=== PATIENT | female | born 1990 | race Caucasian/White ===

== ENCOUNTER 2021-04-10 15:19 | Inpatient (IN) | payer MEDICAID ==
[~2021-04-10] VITALS: Ht 180.3 cm; Wt 100.7 kg
--- NOTE | 2021-04-10 15:22 | NUR ---
TO ER BED 11, [id number] FOR NOTED LOW BODY TEMP X TODAY. NONVERBAL WITH TRACH ATTACHED TO O2 AT 6LPM SPO2 OF 97% WITH GTUBE, URIBE CATH ATTACHED TO UROBAG DRAINING BETTIE COLORED URINE, CONNECTED TO MONITOR, AWAITING MD ORDERS
[2021-04-10] MEDS ORDERED: IV NS 0.9% 1,000 ML BAG IV ONE (16:00)
--- NOTE | 2021-04-10 16:09 | NUR ---
HOUSE CARPENTER AT BEDSIDE FOR BLOOD DRAW
[2021-04-10 16:27] LABS: BASOPHILS % (AUTO) 0.5 % (0.0-2.0); HEMATOCRIT 32 % (33-45); HEMOGLOBIN 10.8 g/dL (11.5-14.8); LYMPHOCYTES # (AUTO) 0.6 K/uL (0.8-4.8); LYMPHOCYTES % (AUTO) 19.3 % (20.0-44.0); MEAN CORPUSCULAR HGB CONC 34 g/dl (31.0-36.0); MEAN CORPUSCULAR VOLUME 85 fL (82-100); MONOCYTES # (AUTO) 0.3 K/uL (0.1-1.30); MONOCYTES % (AUTO) 10.3 % (2.0-12.0); NEUTROPHILS % (AUTO) 65.9 % (43.0-81.0); PLATELET COUNT (AUTO) 102 K/uL (150-450); RED BLOOD CELL COUNT(AUTO) 3.79 MIL/uL (4.0-5.2); WHITE BLOOD COUNT (AUTO) 3.1 K/uL (4.3-11.0)
--- NOTE | 2021-04-10 16:38 | NUR ---
[facility] [place] [phone] WANTED TO BE INFORMED ON HOW PT IS DOING.
--- NOTE | 2021-04-10 16:45 | NUR ---
URINE COLLECTED AND SENT TO LAB
[2021-04-10 16:52] LABS: CALCIUM, SERUM 9.6 mg/dL (8.5-10.1); CARBON DIOXIDE 33 mmol/L (21-32); CHLORIDE 109 mmol/L (98-107); CREATININE 0.4 mg/dL (0.6-1.3); GLUCOSE 54 mg/dL (74-106); POTASSIUM 4.9 mmol/L (3.5-5.1); SODIUM SERUM 147 mmol/L (136-145); UREA NITROGEN, BLOOD 33 mg/dL (7-18)
[2021-04-10 17:04] LABS: ALANINE AMINOTRANSFERASE 139 U/L (12-78); ALBUMIN 2.9 g/dL (3.4-5.0); ALKALINE PHOSPHATASE 175 U/L (46-116); ASPARTATE AMINOTRANSFERASE 57 U/L (15-37); BILIRUBIN,DIRECT 0.1 mg/dL (0.0-0.2); BILIRUBIN,TOTAL 0.2 mg/dL (0.2-1.0); TOTAL PROTEIN, SERUM 6.6 g/dL (6.4-8.2)
[2021-04-10] MEDS ORDERED: SENN-175 GT (17:17)
[2021-04-10] MEDS ORDERED: GLYC2TAB21 GT (17:17)
[2021-04-10] MEDS ORDERED: FAMO20TA8 GT (17:17)
[2021-04-10] MEDS ORDERED: AMIN887L7 GT (17:17)
[2021-04-10] MEDS ORDERED: DOCU-141 GT (17:17)
[2021-04-10] MEDS ORDERED: POLY17PO4 GT (17:17)
[2021-04-10] MEDS ORDERED: APIX2.5T GT (17:17)
[2021-04-10] MEDS ORDERED: CARB200T GT (17:17)
[2021-04-10] MEDS ORDERED: LEVE500T20 GT (17:17)
[2021-04-10] MEDS ORDERED: METH-647 GT (17:17)
[2021-04-10] MEDS ORDERED: LACT1CAP69 GT (17:17)
[2021-04-10] MEDS ORDERED: CHLO473M2 MM (17:17)
[2021-04-10] MEDS ORDERED: LACT-209 GT (17:19)
[2021-04-10 17:56] LABS: BILIRUBIN,URINE NEGATIVE (NEGATIVE); COLOR,URINE YELLOW (YELLOW); LEUKOCYTE ESTERASE ,URINE MODERATE (NEGATIVE); NITRITE, URINE NEGATIVE (NEGATIVE); PROTEIN,URINE TRACE mg/dl (NEGATIVE); UGLUCOSE NEGATIVE (NEGATIVE); UROBILINOGEN,URINE 0.2 EU/dL (0.2)
--- NOTE | 2021-04-10 17:59 | NUR ---
SEEN BY RAMILA GARAY
[2021-04-10] MEDS ORDERED: CEFTRIAXONE 1GM BAG (ER ONLY) 50 ML IV ONE (18:00)
[2021-04-10 18:10] LABS: BACTERIA,URINE 3+ /HPF (None Seen); RBC,URINE 21-50 /HPF (0-2); WBC,URINE 21-50 /HPF (0-3)
[2021-04-10 18:11] LABS: SQUAMOUS EPITHELIAL CELL,UR 0-2 /HPF (None Seen)
[2021-04-10] MEDS ORDERED: ONDANSETRON HCL/PF 4 MG/2 ML VIAL IVP PRN (19:00)
[2021-04-10] MEDS ORDERED: ACETAMINOPHEN 325 MG TABLET PO PRN (19:00)
[2021-04-10] MEDS ORDERED: Z GUARD REMEDY 4 OZ OINT TP PRN (19:00)
[2021-04-10] MEDS ORDERED: LORAZEPAM INJ 2 MG/ML VIAL IV ONE (19:00)
[2021-04-10] MEDS ORDERED: MAG HYDROX/AL HYDROX/SIMETH 30 ML UDC PO PRN (19:00)
[2021-04-10] MEDS ORDERED: IV D5W 1,000 ML IV PRN (19:00)
--- NOTE | 2021-04-10 19:40 | NUR ---
COVID SWAB DONE AND SENT TO LAB
[2021-04-10] MEDS ORDERED: LORAZEPAM INJ 2 MG/ML VIAL ONE (20:47)
[2021-04-10] MEDS: VANCOMYCIN 1 GM in IV D5W 250ml IV SCH (21:00)
--- NOTE | 2021-04-10 21:24 | NUR ---
TEMP 98.3
--- NOTE | 2021-04-10 21:30 | NUR ---
CHELSEA 7.0 NOTIFIED
--- NOTE | 2021-04-10 21:54 | NUR ---
ALBUMIN 1.2 MD NOTIFIED
[2021-04-10 21:58] LABS: T4 (THYROXINE) 5.9 ug/dL (4.7-13.3); THYROID STIMULATING HORMONE 1.882 uIU/mL (0.358-3.74)
[2021-04-10] MEDS ORDERED: LEVETIRACETAM (500MG) 500 MG in IV NS 0.9% 100 ML IV ONE (23:00)
--- NOTE | 2021-04-10 23:02 | NUR ---
tele 107
[2021-04-10] MEDS ORDERED: LEVETIRACETAM (500MG) 500 MG/5 ML VIAL IV ONE (23:13)
--- NOTE | 2021-04-10 23:44 | NUR ---
[facility]
[2021-04-11] MEDS ORDERED: PIPERACILLIN /TAZOBACTAM 3.375 G in IV D5W 50 ML IV SCH ×2
--- NOTE | 2021-04-11 00:31 | NUR ---
TRANSFERRED PATIENT TO 109
[2021-04-11 00:40] VITALS: BP 102/54
--- NOTE | 2021-04-11 00:40 | NUR ---
RN NOTES ADMITTED A 30 Y/O FEMALE PATIENT FROM ER VIA GURNEY. WITH TRACHEOSTOMY TUBE SHILEY #6 CONNECTED TO T-PIECE AT 3LPM SATING 95%. WITH IV ACCESS AT R HAND #22 PATENT FLUSHES WELL CONNECTED TO CONTINUOS IVF D5W @ 75CC/HR. WITH PEG PATENT NO GASTRIC RESIDUAL NOTED. WITH URIBE CATHETER CONNECTED TO URINE BAG DRAINING BETTIE COLORED URINE. VITAL SIGNS TAKEN AND RECORDED. SAFELY TRANSFERRED PATIENT TO BED. COMPLETE BODY ASSESSMENT DONE. PICTURE TAKEN. ALL BELONGINGS ACCOUNTED. ALL SAFETY MEASURES IN PLACE AT ALL TIMES. HOB ELEVATED. CALL LIGHT WITHIN REACH. BED ON LOWEST POSITION AND LOCKED. SEIZURE PRECAUTION IN PLACE WILL MONITOR THE PATIENT CLOSELY.
[2021-04-11 04:00] VITALS: BP 98/68
[2021-04-11] MEDS: VANCOMYCIN 1 GM in IV D5W 250ml IV SCH ×3 (05:02→21:12)
[2021-04-11] MEDS ORDERED: CEFEPIME 2 GM in IV D5W 100 ML IV ONE (06:00)
--- NOTE | 2021-04-11 06:00 | NUR ---
RN NOTES DUE MEDICATION HELD PER PHARMACY NOTES. CN SPOKE MAXX AND SAID HE WILL CHANGE THE ORDER. WILL ENDORSED TO MORNING NURSE.
--- NOTE | 2021-04-11 06:53 | NUR ---
RN NOTES PATIENT REMAINS IN STABLE NO SIGNIFICANT CHANGES IN HEALTH CONDITION. ALL DUE MEDS GIVEN ORDERED. STILL WITH ONGOING IVF OF D5W @ 75 ML/HR. GT INTACT NO GASTRIC RESIDUAL NOTED. ON TRACH CONNECTED TO T-PIECE @ 3LPM SATING 97%. URIBE INTACT DRAINING WELL. ALL SAFETY MEASURES IN PLACE AT ALL TIMES. CALL LIGHT WITHIN REACH HOB ELEVATED. BED ON LOWEST POSITION AND LOCKED. NO EPISODE OF SEIZURE DURING THIS SHIFT. WILL ENDORSED TO MORNING NURSE FOR EDY
--- NOTE | 2021-04-11 07:21 | NUR ---
WOUND CARE CONSULT: REVIEWED CHART, NURSING DOCUMENTATION AND PHOTOS WHICH INDICATE SACRAL DEEP TISSUE INJURY IN EVOLUTION AND RT BUTTOCK INTACT DEEP TISSUE INJURY, PRESENT ON ADMISSION. RECOMMENDATIONS MADE FOR SKIN PROTECTION. DISCUSSED WITH NURSING STAFF. FIRST STEP LOW AIRLOSS MATTRESS IS ON ORDER. MD IN AGREEMENT WITH PLAN OF CARE.
--- NOTE | 2021-04-11 07:30 | NUR ---
SALES ENABLEMENT SPECIALIST NOTES RECEIVED PATIENT IN BED . NON VERBAL. OBTUNDED. NO FACIAL GRIMACING NOTED. NO SOB NO RESPIRATORY DISTRESS NOTED. IV SIDE ON THE RIGHT HAND # 22 INTACT. IVF OF D5W @ 75 ML/HR RUNNING.PATIENT ON G-TUBE. GT INTACT NO GASTRIC RESIDUAL NOTED. ON TRACH CONNECTED TO T-PIECE @ 3LPM SATING 96%. URIBE INTACT DRAINING WELL. ALL SAFETY MEASURES IN PLACE AT ALL TIMES. CALL LIGHT WITHIN REACH HOB ELEVATED. BED ON LOWEST POSITION AND LOCKED. WILL CONTINUE TO MONITOR.
[2021-04-11 07:55] LABS: BASOPHILS % (AUTO) 0.6 % (0.0-2.0); EOSINOPHILS % (AUTO) 1.9 % (0.0-6.0); HEMATOCRIT 32 % (33-45); HEMOGLOBIN 10.5 g/dL (11.5-14.8); LYMPHOCYTES # (AUTO) 0.9 K/uL (0.8-4.8); LYMPHOCYTES % (AUTO) 19.4 % (20.0-44.0); MEAN CORPUSCULAR HGB CONC 33 g/dl (31.0-36.0); MEAN CORPUSCULAR VOLUME 85 fL (82-100); MONOCYTES # (AUTO) 0.5 K/uL (0.1-1.30); MONOCYTES % (AUTO) 10.5 % (2.0-12.0); NEUTROPHILS # (AUTO) 3.2 K/uL (1.8-8.9); NEUTROPHILS % (AUTO) 67.6 % (43.0-81.0); PLATELET COUNT (AUTO) 132 K/uL (150-450); RED BLOOD CELL COUNT(AUTO) 3.74 MIL/uL (4.0-5.2); WHITE BLOOD COUNT (AUTO) 4.7 K/uL (4.3-11.0)
[2021-04-11] MEDS: PANTOPRAZOLE 40 MG TABLET.DR PO SCH (07:59)
[2021-04-11] MEDS: CEFEPIME 2 GM in IV D5W 100 ML IV SCH ×3 (07:59→21:12)
[2021-04-11 08:00] VITALS: BP 98/55
[2021-04-11 08:29] LABS: CALCIUM, SERUM 10.1 mg/dL (8.5-10.1); CREATININE 0.5 mg/dL (0.6-1.3); MAGNESIUM 1.9 mg/dL (1.8-2.4); PHOSPHORUS 4.2 mg/dL (2.5-4.9); POTASSIUM 4.3 mmol/L (3.5-5.1)
[2021-04-11] MEDS: METHOCARBAMOL (500MG) 500 MG TABLET GT SCH ×3 (08:55→16:30)
[2021-04-11] MEDS: FAMOTIDINE (20 MG) 20 MG TABLET GT SCH ×2 (08:55→16:30)
[2021-04-11] MEDS: CHLORHEXIDINE GLUCONATE 15 ML UDC MM SCH ×2 (08:55→16:30)
[2021-04-11] MEDS: LEVETIRACETAM SOL (5 ML) 100 MG/ML UDC GT SCH ×2 (08:55→16:29)
[2021-04-11] MEDS: APIXABAN 2.5 MG TABLET GT SCH ×2 (09:04→21:14)
[2021-04-11] MEDS: CARBAMAZEPINE 200 MG TABLET GT SCH (09:26)
[2021-04-11] MEDS: PROSOURCE / PROSTAT (PYXIS) 30 ML UDC GT SCH (09:27)
[2021-04-11] MEDS: LORAZEPAM INJ 2 MG/ML VIAL IV PRN (11:23)
[2021-04-11] MEDS ORDERED: CARBAMAZEPINE 200 MG TABLET GT ONE (11:30)
[2021-04-11] MEDS: IV D5/ 0.9% NACL 1,000 ML IV PRN (11:43)
[2021-04-11 12:00] VITALS: BP 101/65
[2021-04-11] MEDS: HYDROCORTISONE SOD SUCCINATE 100 MG/2 ML VIAL IV SCH ×2 (12:40→21:13)
--- NOTE | 2021-04-11 12:49 | NUR ---
SS received consult regarding name change. SW attempted to speak with pt., but pt. has a trach connector placed. SW spoke with charge nurse and she stated that pt. wants to change name for confidential reasons. SW spoke with admitting and they were not able to change her name. Admitting was able to set pt. has confidential, so if anyone calls and ask for pt., it will be confidential.
[2021-04-11 16:00] VITALS: BP 118/62
--- NOTE | 2021-04-11 18:55 | NUR ---
VALIDATION ARCHITECT CLOSING NOTES PATIENT IN BED . NON VERBAL. NO FACIAL GRIMACING NOTED. NO SOB NO RESPIRATORY DISTRESS NOTED. IV SIDE ON THE RIGHT UPPER FOREARM # 22 INTACT. IVF OF D5NS @ 100 ML/HR RUNNING.PATIENT ON G-TUBE. GT INTACT NO GASTRIC RESIDUAL NOTED. ON TRACH CONNECTED TO T-PIECE @ 1LPM SATING 97%. URIBE INTACT DRAINING WELL. ALL SAFETY MEASURES IN PLACE AT ALL TIMES.ALL DUE MEDS AND TREATMENTS GIVEN ORDERED. CALL LIGHT WITHIN REACH HOB ELEVATED. BED ON LOWEST POSITION AND LOCKED. WILL ENDORSE INCOMING SHIFT FOR EDY.
--- NOTE | 2021-04-11 19:10 | NUR ---
RN NOTES RECEIVED REPORT FROM MORNING RN PATIENT IN BED OBTUNDED. WITH TRACH SHILEY #6 PATENT CONNECTED TO T-PIECE AT 1LPM SATING 99%. WITH GT INTACT NO RESIDUAL NOTED. WITH IV ACCESS AT R FOREARM #22 PATENT FLUSHES WELL CONNECTED TO D5 NACL @100CC/HR. WITH URIBE CATHETER CONNECTED TO URINE BAG PATENT DRAINING YELLOWISH URINE OUTPUT. VITAL SIGNS TAKEN AND RECORDED. AFEBRILE. ALL SAFETY MEASURES IN PLACE AT ALL TIMES. HOB ELEVATED. CALL LIGHT WITHIN REACH. BED O0N LOWEST POSITION AND LOCKED. WILL CLOSELY MONITOR THE PATIENT.
[2021-04-11 20:00] VITALS: BP 106/65
[2021-04-11] MEDS: CARBAMAZEPINE 200 MG TABLET PO SCH (21:13)
[2021-04-12] VITALS: BP 93/52
[2021-04-12] MEDS: LORAZEPAM INJ 2 MG/ML VIAL IV PRN (01:13)
[2021-04-12] MEDS: IV D5/ 0.9% NACL 1,000 ML IV PRN ×2 (01:21→13:48)
[2021-04-12 04:00] VITALS: BP 102/56
[2021-04-12] MEDS: CEFEPIME 2 GM in IV D5W 100 ML IV SCH ×3 (04:18→20:37)
[2021-04-12] MEDS: VANCOMYCIN 1 GM in IV D5W 250ml IV SCH ×3 (04:51→20:40)
[2021-04-12] MEDS: HYDROCORTISONE SOD SUCCINATE 100 MG/2 ML VIAL IV SCH ×3 (05:05→20:37)
[2021-04-12 06:34] LABS: BASOPHILS % (AUTO) 0.5 % (0.0-2.0); EOSINOPHILS % (AUTO) 0.7 % (0.0-6.0); HEMATOCRIT 27 % (33-45); HEMOGLOBIN 9.2 g/dL (11.5-14.8); LYMPHOCYTES % (AUTO) 28.8 % (20.0-44.0); MEAN CORPUSCULAR HGB CONC 34 g/dl (31.0-36.0); MEAN CORPUSCULAR VOLUME 84 fL (82-100); MONOCYTES # (AUTO) 0.2 K/uL (0.1-1.30); MONOCYTES % (AUTO) 6.3 % (2.0-12.0); NEUTROPHILS # (AUTO) 2.1 K/uL (1.8-8.9); NEUTROPHILS % (AUTO) 63.7 % (43.0-81.0); PLATELET COUNT (AUTO) 108 K/uL (150-450); RED BLOOD CELL COUNT(AUTO) 3.22 MIL/uL (4.0-5.2); WHITE BLOOD COUNT (AUTO) 3.4 K/uL (4.3-11.0)
--- NOTE | 2021-04-12 06:53 | NUR ---
RN NOTES PATIENT REMAINS IN STABLE CONDITION NO SIGNIFICANT CHANGES. ALL DUE MEDS GIVEN ORDERED. STILL ON T-PIECE AT 1LPM TOLERATING WELL SATING 98%. WITH IV ACCES @ R FOREARM PATENT CONNECTED TO CONTINUOS IVF OF D2NS @100 CC/HR. ALL DUE MEDS GIVEN ORDERED. GT PATENT NO RESIDUAL NOTED. NO DISTRESS OR DISCOMFORT NOTED. ALL SAFETY MEASURES IN PLACE AT ALL TIMES. CALL LIGHT WITHIN REACH. HOB ELEVATED. BED ON LOWEST POSITION AND LOCKED. SEIZURE PRECAUTION IN PLACE.WILL ENDORSED TO MORNING RN FOR EDY
[2021-04-12 07:55] LABS: CALCIUM, SERUM 9.2 mg/dL (8.5-10.1); CREATININE 0.5 mg/dL (0.6-1.3); POTASSIUM 3.6 mmol/L (3.5-5.1)
[2021-04-12 08:00] VITALS: BP 94/54
--- NOTE | 2021-04-12 08:00 | NUR ---
RN Opening Note Patient received in bed obtunded, does no appears distress observed, able to responds all stimuli. Patient is on T piece, Cristy #6, and respiratory even and unlabored. Skin is warm to touch, keep clean/dry, intact IV site. Kept elevated HOB for ensure air/aspiration precaution and remains lower position of the bed. call light within reach, will continue to monitor.
[2021-04-12] MEDS: PANTOPRAZOLE 40 MG TABLET.DR PO SCH (08:48)
[2021-04-12] MEDS: FAMOTIDINE (20 MG) 20 MG TABLET GT SCH ×2 (08:52→16:34)
[2021-04-12] MEDS: APIXABAN 2.5 MG TABLET GT SCH ×2 (08:52→20:34)
[2021-04-12] MEDS: METHOCARBAMOL (500MG) 500 MG TABLET GT SCH ×3 (08:53→16:34)
[2021-04-12] MEDS: PROSOURCE / PROSTAT (PYXIS) 30 ML UDC GT SCH (08:54)
[2021-04-12] MEDS: LEVETIRACETAM SOL (5 ML) 100 MG/ML UDC GT SCH ×2 (08:54→16:34)
[2021-04-12] MEDS: CHLORHEXIDINE GLUCONATE 15 ML UDC MM SCH ×2 (08:55→16:34)
[2021-04-12] MEDS: CARBAMAZEPINE 200 MG TABLET GT SCH (08:57)
[2021-04-12 12:00] VITALS: BP 94/65
[2021-04-12 14:14] LABS: IRON, SERUM 61 ug/dl (50-175); TOTAL IRON BINDING CAPACITY 234 ug/dl (250-450)
[2021-04-12 14:19] LABS: FERRITIN 94 ng/mL (8-388)
[2021-04-12 16:00] VITALS: BP 100/54
--- NOTE | 2021-04-12 18:25 | NUR ---
RN Closing Note Patient is resting in bed, no distress observed. Respiratory even and unlabored with oxygen via T-piece at 1L. Suction and oral care provided frequently. Skin is warm to touch, keep clean/dry, intact IV site. Kept elevated HOB for ensure airway and aspiration precaution, Also lower position of the bed for safety. Call light within reach, all needs met. will endorse production supervisor off shift.
[2021-04-12 20:00] VITALS: BP 100/54
[2021-04-12 20:40] LABS: ABG BASE EXCESS 3.7 mmol/L; ABG PCO2 47.2 mmHg (35.0-45.0); ABG PH 7.406 (7.350-7.450); ABG PO2 224.4 mmHg (75.0-100.0); COHb 0.1 % (0.5-1.5); MetHb 0.2 % (0.0-1.5); O2Hb 98.7 % (94.0-97.0); SITE, ABG Right Radial; VENT MODE, BG 3LPM VIA T-PIECE
[2021-04-12] MEDS: CARBAMAZEPINE 200 MG TABLET PO SCH (21:38)
[2021-04-13] VITALS: BP 106/61
[2021-04-13] MEDS: IV D5/ 0.9% NACL 1,000 ML IV PRN ×2 (03:10→21:49)
[2021-04-13 04:00] VITALS: BP 96/59
[2021-04-13] MEDS: VANCOMYCIN 1 GM in IV D5W 250ml IV SCH ×2 (04:16→20:21)
[2021-04-13] MEDS: CEFEPIME 2 GM in IV D5W 100 ML IV SCH ×3 (04:17→20:13)
[2021-04-13] MEDS: HYDROCORTISONE SOD SUCCINATE 100 MG/2 ML VIAL IV SCH ×3 (04:17→20:13)
--- NOTE | 2021-04-13 04:47 | NUR ---
RN notes Resting comfortably in bed with no distress noted. Breathing even and unlabored. On nasal cannula at 2lpm, tolerating well. Alert and oriented, able to verbalize needs. Panamanian speaking but able to speak a little Japanese. No complaint of pain or discomfort. No significant change of condition. Continuous monitoring done. Kept clean and dry. Will endorse to next shift for continuity of care.
--- NOTE | 2021-04-13 04:48 | NUR ---
RN notes In bed resting comfortably. No distress noted. Breathing even and unlabored. On T-piece via trach tolerating well. Opens eyes with no eye tracking, obtunded. NPO after midnight for US of the abdomen in am. No physical manifestation of pain or discomfort. No significant change of condition. Kept clean and dry. Continuous monitory done. Kept clean and dry. Will endorse to next shift for continuity of care.
[2021-04-13 05:36] LABS: CALCIUM, SERUM 8.8 mg/dL (8.5-10.1); CREATININE 0.4 mg/dL (0.6-1.3); POTASSIUM 3.5 mmol/L (3.5-5.1)
--- NOTE | 2021-04-13 07:13 | NUR ---
RN OPENING NOTES PT RECEIVED IN BED OBTUNDED, NO S/S OF DISTRESS OBSERVED AT THIS TIME. PT IS ON T PIECE, NORMAN #6 WITH RESPIRATIONS EVEN AND UNLABORED. SKIN IS WARM TO TOUCH AND KEPT CLEAN AND DRY, IV SITE INTACT. ALL SAFETY MEASURES IN PLACE, BED IN LOWEST LOCKED POSITION, SR UP X 3, CALL LIGHT WITHIN REACH. WILL CONTINUE TO MONITOR THROUGHOUT SHIFT.
[2021-04-13] MEDS: PANTOPRAZOLE 40 MG TABLET.DR PO SCH (07:27)
[2021-04-13 08:00] VITALS: BP 104/65
[2021-04-13 08:06] LABS: IMMUNOGLOBULIN A, SERUM 187 mg/dL (87-352); IMMUNOGLOBULIN G, SERUM 859 mg/dL (586-1602); IMMUNOGLOBULIN M, SERUM 64 mg/dL (26-217)
[2021-04-13] MEDS: FAMOTIDINE (20 MG) 20 MG TABLET GT SCH ×2 (08:56→16:07)
[2021-04-13] MEDS: CHLORHEXIDINE GLUCONATE 15 ML UDC MM SCH ×2 (08:56→16:08)
[2021-04-13] MEDS: METHOCARBAMOL (500MG) 500 MG TABLET GT SCH ×3 (08:56→16:08)
[2021-04-13] MEDS: LEVETIRACETAM SOL (5 ML) 100 MG/ML UDC GT SCH ×2 (08:59→16:08)
[2021-04-13] MEDS: CARBAMAZEPINE 200 MG TABLET GT SCH (09:00)
[2021-04-13] MEDS: PROSOURCE / PROSTAT (PYXIS) 30 ML UDC GT SCH (09:01)
[2021-04-13] MEDS: APIXABAN 2.5 MG TABLET GT SCH ×2 (09:01→20:14)
[2021-04-13] MEDS ORDERED: JEVITY 1.2 CAL 1,000 ML BOTTLE GT PRN ×2 (11:00)
[2021-04-13] MEDS ORDERED: JEVITY 1.2 CAL 1,000 ML BOTTLE GT SCH ×2 (11:00)
[2021-04-13 12:00] VITALS: BP 100/58
[2021-04-13 16:00] VITALS: BP 109/71
--- NOTE | 2021-04-13 18:42 | NUR ---
RN CLOSING NOTES PT IS CURRENTLY RESTING IN BED, PT IS OBTUNDED AND IN A PERSISTENT VEGETATIVE STATE. NO S/S OF DISTRESS OR SOB, ISOLATION AND ASPIRATION PRECAUTIONS IN PLACE. PT HAS T PIECE ABHILASH SIZE 6 SATING AT 99%. HOB ELEVATED TO AT LEAST 35 DEGREES THROUGHOUT SHIFT. JEVITY 1.2 RUNNING THROUGH G TUBE AT 75ML/HR. ALL SAFETY MEASURES IN PLACE, BED IN LOWEST LOCKED POSITION, SR UP X 3, CALL LIGHT WITHIN REACH. WILL ENDORSE TO DATACAP DEVELOPER NURSE FOR EDY.
--- NOTE | 2021-04-13 19:40 | NUR ---
AIRCRAFT MECHANIC OPENING NOTES RECEIVED PT RESTING IN BED, EASILY AROUSABLE. PT IS OBTUNDED AND IN A PERSISTENT VEGETATIVE STATE. NO SOB OR S/S OF RESPIRATORY DISTRESS. PT HAS T PIECE ABHILASH SIZE 6 SATING AT 99%. EXTERNAL IMMUNOLOGY TEACHER IN PLACE. IV ACCESS LFA 22G, INTACT AND PATENT. URIBE CATHETER IN PLACE DRAINING CLEAR YELLOW URINE. JEVITY 1.2 RUNNING THROUGH G TUBE AT 75ML/HR. SAFETY PRECAUTIONS IN PLACE. BED IN LOWEST LOCKED POSITION, HOB ELEVATED, SIDE RAILS UP X3, AND CALL LIGHT AND TABLE WITHIN REACH. WILL CONTINUE WITH PLAN OF CARE.
[2021-04-13 20:00] VITALS: BP 115/68
[2021-04-13] MEDS: CARBAMAZEPINE 200 MG TABLET PO SCH (21:15)
[2021-04-14] VITALS: BP 110/67
[2021-04-14 04:00] VITALS: BP 111/65
[2021-04-14] MEDS: HYDROCORTISONE SOD SUCCINATE 100 MG/2 ML VIAL IV SCH ×3 (04:23→21:45)
[2021-04-14] MEDS: CEFEPIME 2 GM in IV D5W 100 ML IV SCH ×2 (04:23→12:27)
--- NOTE | 2021-04-14 05:00 | NUR ---
RN NOTE VANCO GIVEN AT 0500 BECAUSE VANCO TROUGH TAKEN YESTERDAY NOT A TRUE TROUGH PER DIONY RUTHERFORD FROM PHARMACY. VANCO LEVEL WAS 61 BUT WAS DRAWN 10 MINUTES AFTER VANCO WAS STARTED. NEW VANCO TROUGH WILL BE DRAWN TODAY AT 2000. WILL ENDORSE TO ONCOMING NURSE FOR EDY.
[2021-04-14] MEDS: VANCOMYCIN 1 GM in IV D5W 250ml IV SCH (05:11)
--- NOTE | 2021-04-14 06:47 | NUR ---
RICE FARMWORKER CLOSING NOTES PT RESTING IN BED, EASILY AROUSABLE. PT IS OBTUNDED AND IN A PERSISTENT VEGETATIVE STATE. NO SOB OR S/S OF RESPIRATORY DISTRESS. PT HAS T PIECE ABHILASH SIZE 6 SATING AT 99%. EXTERNAL PROJECTION ENGINEER IN PLACE READING SR. IV ACCESS LFA 22G RUNNING D5NS @ 100 ML/HR, INTACT AND PATENT. URIBE CATHETER IN PLACE DRAINING CLEAR YELLOW URINE, 350 ML. JEVITY 1.2 RUNNING THROUGH G TUBE AT 75ML/HR. ALL NEEDS MET AT THIS TIME. SAFETY PRECAUTIONS IN PLACE AT ALL TIMES. BED IN LOWEST LOCKED POSITION, HOB ELEVATED, SIDE RAILS UP X3, AND CALL LIGHT AND TABLE WITHIN REACH. WILL ENDORSE TO ONCOMING SHIFT FOR EDY.
[2021-04-14] MEDS: PANTOPRAZOLE 40 MG TABLET.DR PO SCH (07:15)
[2021-04-14 07:43] LABS: CALCIUM, SERUM 8.6 mg/dL (8.5-10.1); CREATININE 0.4 mg/dL (0.6-1.3); PHOSPHORUS 3.4 mg/dL (2.5-4.9); POTASSIUM 3.2 mmol/L (3.5-5.1)
[2021-04-14 08:00] VITALS: BP 107/70
[2021-04-14 08:06] LABS: *SPE A/G RATIO 1.1 (0.7-1.7); *SPE ALPHA-1-GLOBULIN 0.3 g/dL (0.0-0.4); *SPE ALPHA-2-GLOBULIN 0.6 g/dL (0.4-1.0); *SPE BETA GLOBULIN 0.9 g/dL (0.7-1.3); *SPE M-SPIKE Not Observed g/dL (Not Observed)
[2021-04-14] MEDS: CHLORHEXIDINE GLUCONATE 15 ML UDC MM SCH ×2 (08:45→16:16)
[2021-04-14] MEDS: FAMOTIDINE (20 MG) 20 MG TABLET GT SCH ×2 (08:45→16:16)
[2021-04-14] MEDS: METHOCARBAMOL (500MG) 500 MG TABLET GT SCH ×3 (08:46→16:15)
[2021-04-14] MEDS: LEVETIRACETAM SOL (5 ML) 100 MG/ML UDC GT SCH ×2 (08:46→16:16)
[2021-04-14] MEDS: APIXABAN 2.5 MG TABLET GT SCH ×2 (08:50→21:47)
[2021-04-14] MEDS: CARBAMAZEPINE 200 MG TABLET GT SCH (08:52)
[2021-04-14] MEDS: PROSOURCE / PROSTAT (PYXIS) 30 ML UDC GT SCH (08:53)
[2021-04-14 10:10] LABS: BASOPHILS % (AUTO) 0.3 % (0.0-2.0); EOSINOPHILS % (AUTO) 0.9 % (0.0-6.0); HEMATOCRIT 26 % (33-45); HEMOGLOBIN 8.6 g/dL (11.5-14.8); LYMPHOCYTES # (AUTO) 0.7 K/uL (0.8-4.8); LYMPHOCYTES % (AUTO) 14.3 % (20.0-44.0); MEAN CORPUSCULAR HGB CONC 33 g/dl (31.0-36.0); MEAN CORPUSCULAR VOLUME 85 fL (82-100); MONOCYTES # (AUTO) 0.3 K/uL (0.1-1.30); MONOCYTES % (AUTO) 5.1 % (2.0-12.0); NEUTROPHILS # (AUTO) 4.1 K/uL (1.8-8.9); NEUTROPHILS % (AUTO) 79.4 % (43.0-81.0); PLATELET COUNT (AUTO) 78 K/uL (150-450); RED BLOOD CELL COUNT(AUTO) 3.06 MIL/uL (4.0-5.2); WHITE BLOOD COUNT (AUTO) 5.1 K/uL (4.3-11.0)
[2021-04-14 12:00] VITALS: BP 99/49
[2021-04-14] MEDS: POTASSIUM CHLORIDE 20 MEQ POWDER PACKET NG SCH ×2 (13:25→14:24)
[2021-04-14] MEDS: IV D5/ 0.9% NACL 1,000 ML IV PRN (14:10)
[2021-04-14] MEDS: CEFTRIAXONE 1 G in IV D5W 50 ML IV SCH (14:24)
[2021-04-14 16:00] VITALS: BP 118/74
[2021-04-14] MEDS: JEVITY 1.2 CAL 1,000 ML BOTTLE GT SCH (17:13)
--- NOTE | 2021-04-14 18:40 | NUR ---
RN CLOSING NOTES PT IS RESTING IN BED, PT IS OBTUNDED AND IN A PERSISTENT VEGETATIVE STATE. PT HAS T PIECE ABHILASH SIZE 6 AND ON 2L. PT TOLERATED ALL INCREASED FEEDINGS DURING SHIFT. NO RESIDUAL NOTED. JEVITY 1.2 IS RUNNING CURRENTLY AT 75ML/HR. IV ACCESS IS AT L FA 22G RUNNING D5 0.9 NS AT 100ML/HR. ALL SAFETY MEASURES IN PLACE, BED IN LOWEST LOCKED POSITION, SR UP X 3, CALL LIGHT WITHIN REACH. HOB ELEVATED TO SEMI FOWLERS, WILL ENDORSE TO ESCAPE WHEEL TOOTH CUTTER NURSE FOR EDY.
--- NOTE | 2021-04-14 19:40 | NUR ---
RN OPENING NOTES RECEIVED PT IN BED, PERSISTENT VEGITATIVE STATE, ON TRACH#ARMANDO#6 WITH T-PIECE 2L AND PT TOLERATED WELL. IV ACCESS LFA#22G, RUNNING NS 100ML/HR, NO S/S OF INFILTRATIONS. ON GTUBE FEEDING, JEVITY 1.2 AT 75ML/HR AND PT TOLERATED WELL. NO RESIDUAL NOTED. NO FACIAL GRIMACING NOTED. NO ACUTE DISTRESS. ALL SAFETY MEASURES IN PLACE, BED IN LOWEST POSITION AND LOCKED, SIDE RAILS UP X 3, PLACE CALL LIGHT WITHIN REACH. HOB ELEVATED, WILL CONTINUE TO MONITOR.
[2021-04-14 20:00] VITALS: BP 109/59
[2021-04-14] MEDS: CARBAMAZEPINE 200 MG TABLET PO SCH (21:45)
[2021-04-15] VITALS: BP 117/73
[2021-04-15] MEDS: IV D5/ 0.9% NACL 1,000 ML IV PRN ×2 (00:57→11:00)
[2021-04-15 04:00] VITALS: BP 112/66
[2021-04-15] MEDS: HYDROCORTISONE SOD SUCCINATE 100 MG/2 ML VIAL IV SCH ×4 (04:41→16:21)
--- NOTE | 2021-04-15 06:47 | NUR ---
RN CLOSING NOTES PT IN BED, PERSISTENT VEGETATIVE STATE, ON TRACH#ARMANDO#6 WITH T-PIECE 2L, O2 SAT 97% AND PT TOLERATED WELL. IV ACCESS LFA#22G, RUNNING NS 100ML/HR, NO S/S OF INFILTRATIONS. ON GTUBE FEEDING, JEVITY 1.2 AT 75ML/HR AND PT TOLERATED WELL. 10CC RESIDUAL NOTED. NO FACIAL GRIMACING NOTED. NO ACUTE DISTRESS. SUCTION SEVERAL TIMES AND PT TOLERATED WELL. URIBE CATHETER INTACT AND PATENT WITH YELLOWISH/CLEAR URINE. ALL DUE MEDS GIVEN ORDERED. ALL SAFETY MEASURES IN PLACE, BED IN LOWEST POSITION AND LOCKED, SIDE RAILS UP X 3, PLACE CALL LIGHT WITHIN REACH. HOB ELEVATED, WILLENDORSE TO MORNING SHIFT NURSE.
--- NOTE | 2021-04-15 07:30 | NUR ---
RN OPENING NOTES PATIENT IN BED. A/OXO VEGETATIVE STATE. ON TRACH SHILEY#6 WITH T-PIECE 2L TOLERATING WELL WITH O2 SAT 96% NO S/S SOB OR DISTRESS. IV ACCESS LFA#22G INTACT AND PATENT RUNNING NS 100ML/HR, NO S/S OF INFILTRATIONS. ON GTUBE FEEDING INTACT AND PATENT JEVITY 1.2 AT 75ML/HR AND PT TOLERATED WELL. URIBE CATHETER INTACT AND PATENT WITH YELLOWISH/CLEAR URINE. BED IN LOWEST POSITION AND LOCKED IN PLACE. CALL LIGHT PLACED IN REACH. ALL SAFETY MEASURES NOTED AND ACCOUNTED FOR. WILL CONTINUE TO MONITOR.
[2021-04-15 07:37] LABS: BASOPHILS % (AUTO) 1.1 % (0.0-2.0); EOSINOPHILS % (AUTO) 2.6 % (0.0-6.0); HEMATOCRIT 26 % (33-45); HEMOGLOBIN 8.5 g/dL (11.5-14.8); LYMPHOCYTES # (AUTO) 1.3 K/uL (0.8-4.8); LYMPHOCYTES % (AUTO) 31.4 % (20.0-44.0); MEAN CORPUSCULAR HGB CONC 33 g/dl (31.0-36.0); MEAN CORPUSCULAR VOLUME 85 fL (82-100); MONOCYTES # (AUTO) 0.5 K/uL (0.1-1.30); MONOCYTES % (AUTO) 12.3 % (2.0-12.0); NEUTROPHILS # (AUTO) 2.2 K/uL (1.8-8.9); NEUTROPHILS % (AUTO) 52.6 % (43.0-81.0); PLATELET COUNT (AUTO) 95 K/uL (150-450); RED BLOOD CELL COUNT(AUTO) 3.03 MIL/uL (4.0-5.2); WHITE BLOOD COUNT (AUTO) 4.1 K/uL (4.3-11.0)
[2021-04-15 08:00] VITALS: BP 104/63
[2021-04-15 08:14] LABS: CALCIUM, SERUM 8.4 mg/dL (8.5-10.1); CREATININE 0.4 mg/dL (0.6-1.3); PHOSPHORUS 3.4 mg/dL (2.5-4.9); POTASSIUM 3.6 mmol/L (3.5-5.1)
[2021-04-15] MEDS: LEVETIRACETAM SOL (5 ML) 100 MG/ML UDC GT SCH ×2 (08:34→16:18)
[2021-04-15] MEDS: METHOCARBAMOL (500MG) 500 MG TABLET GT SCH ×3 (08:34→16:18)
[2021-04-15] MEDS: PANTOPRAZOLE 40 MG TABLET.DR PO SCH (08:34)
[2021-04-15] MEDS: CHLORHEXIDINE GLUCONATE 15 ML UDC MM SCH ×2 (08:35→16:18)
[2021-04-15] MEDS: FAMOTIDINE (20 MG) 20 MG TABLET GT SCH ×2 (08:35→16:18)
[2021-04-15] MEDS: APIXABAN 2.5 MG TABLET GT SCH ×2 (08:35→21:17)
[2021-04-15] MEDS: CARBAMAZEPINE 200 MG TABLET GT SCH (08:41)
[2021-04-15] MEDS: JEVITY 1.2 CAL 1,000 ML BOTTLE GT SCH (11:01)
[2021-04-15 11:07] LABS: *ANA ANTI-CENTROMERE B AB <0.2 AI (0.0-0.9); *ANA ANTI-DNA(DS) AB, QN <1 IU/mL (0-9); *ANA ANTI-JO-1 <0.2 AI (0.0-0.9); *ANA ANTICHROMATIN ANTIBODY <0.2 AI (0.0-0.9); *ANA RNP ANTIBODIES <0.2 AI (0.0-0.9); *ANA SJOGREN'S ANTI-SS-A <0.2 AI (0.0-0.9); *ANA SJOGREN'S ANTI-SS-B <0.2 AI (0.0-0.9); *ANAANTI-SCLERODERMA-70 AB <0.2 AI (0.0-0.9); *ANASMITH AB <0.2 AI (0.0-0.9)
[2021-04-15 12:00] VITALS: BP 94/55
[2021-04-15] MEDS: CEFTRIAXONE 1 G in IV D5W 50 ML IV SCH (12:22)
[2021-04-15] MEDS: PROSOURCE / PROSTAT (PYXIS) 30 ML UDC GT SCH (12:43)
[2021-04-15 16:00] VITALS: BP 98/52
--- NOTE | 2021-04-15 16:21 | NUR ---
RN NOTE NON ADMIN SOLU CORTEF AT 1700. SOLU CORTEF ADMINISTERED AT 1200 AND 1600. BID MEDICATION ONLY.
--- NOTE | 2021-04-15 18:44 | NUR ---
RN CLOSING NOTE PATIENT IN BED. A/OXO VEGETATIVE STATE. ON TRACH SHILEY#6 WITH T-PIECE 2L TOLERATING WELL WITH O2 SAT 96% NO S/S SOB OR DISTRESS. MULTIPLE TRACHEAL SUCTIONS NEEDED THROUGHOUT THE DAY. IV ACCESS LFA#22G INTACT AND PATENT RUNNING NS 100ML/HR, NO S/S OF INFILTRATIONS. ON GTUBE FEEDING INTACT AND PATENT JEVITY 1.2 AT 75ML/HR AND PT TOLERATED WELL. URIBE CATHETER INTACT AND PATENT WITH YELLOWISH/CLEAR URINE. BED IN LOWEST POSITION AND LOCKED IN PLACE. CALL LIGHT PLACED IN REACH. ALL SAFETY MEASURES NOTED AND ACCOUNTED FOR. WILL ENDORSE TO METAL SPRAYER MACHINED PARTS RN.
--- NOTE | 2021-04-15 19:25 | NUR ---
RN NOTE PT RECEIVED IN BED. PT IS ON T-PIECE AT 2LPM TOLERATING WELL WITH OXYGEN SATURATION AT 100%. PT IS NOT ALERT, IN VEGETATIVE STATE. ON PATROL SERGEANT SHERIFF'S OFFICE SHOWING NSR. URIBE CATH NOTED. JEVITY 1.2 RUNNING AT 75 CC/HR. PT TOLERATING WELL. IV ACCESS NOTED ON RIGHT FA #22. LINE FLUSHED, PATENT, AND INTACT WITH NO SIGNS OF INFILTRATION. ALL SAFETY MEASURES IMPLEMENTED. WILL CONTINUE TO MONITOR FOR ANY CHANGES DURING SHIFT.
[2021-04-15 20:00] VITALS: BP 113/71
[2021-04-15] MEDS: CARBAMAZEPINE 200 MG TABLET PO SCH (21:18)
[2021-04-16] VITALS: BP 115/65
[2021-04-16] MEDS: IV D5/ 0.9% NACL 1,000 ML IV PRN (00:58)
[2021-04-16 04:00] VITALS: BP 114/65
[2021-04-16] MEDS: JEVITY 1.2 CAL 1,000 ML BOTTLE GT SCH (04:53)
--- NOTE | 2021-04-16 06:34 | NUR ---
RN NOTE NO CHANGES IN PT CONDITION DURING SHIFT. PT IS ON T-PIECE AT 2LPM TOLERATING WELL WITH OXYGEN SATURATION AT 100%. PT IS IN VEGETATIVE STATE. ON MAIL TELLER SHOWING NSR. JEVITY 1.2 RUNNING AT 75 CC/HR. PT TOLERATING WELL. IV ACCESS NOTED ON RIGHT FA #22 RUNNING D5NS AT 100 CC/HR. LINE FLUSHED, PATENT, AND INTACT WITH NO SIGNS OF INFILTRATION. ALL DUE MEDS GIVEN ORDERED. PT KEPT CLEAN AND COMFORTABLE. ALL SAFETY MEASURES IMPLEMENTED. WILL ENDORSE TO MORNING SHIFT RN FOR EDY.
--- NOTE | 2021-04-16 07:27 | NUR ---
RN NOTES PATIENT IN BED RESTING, A/O XO, OBTUNDED. ON TRACH SHILEY#6 WITH T-PIECE 2L TOLERATING WELL WITH O2 SAT 97% NO S/S OF DISTRESS. IV ACCESS LFA#22G INTACT AND PATENT. ON GTUBE FEEDING OF JEVITY 1.2 AT 75ML/HR AND PT TOLERATED WELL. URIBE CATHETER IN PLACE, DRAINING YELLOW-COLORED URINE. SAFETY MEASURES IN PLACE. WILL CONTINUE TO MONITOR.
[2021-04-16 08:00] VITALS: BP 110/64
[2021-04-16] MEDS: CHLORHEXIDINE GLUCONATE 15 ML UDC MM SCH ×2 (08:39→16:14)
[2021-04-16] MEDS: METHOCARBAMOL (500MG) 500 MG TABLET GT SCH ×3 (08:39→16:14)
[2021-04-16] MEDS: FAMOTIDINE (20 MG) 20 MG TABLET GT SCH ×2 (08:39→16:14)
[2021-04-16] MEDS: HYDROCORTISONE SOD SUCCINATE 100 MG/2 ML VIAL IV SCH ×2 (08:39→16:15)
[2021-04-16] MEDS: LEVETIRACETAM SOL (5 ML) 100 MG/ML UDC GT SCH ×2 (08:47→16:14)
[2021-04-16] MEDS: PANTOPRAZOLE 40 MG TABLET.DR PO SCH (08:48)
[2021-04-16] MEDS: APIXABAN 2.5 MG TABLET GT SCH ×2 (08:48→21:35)
[2021-04-16] MEDS: CARBAMAZEPINE 200 MG TABLET GT SCH (08:49)
[2021-04-16] MEDS: PROSOURCE / PROSTAT (PYXIS) 30 ML UDC GT SCH (08:50)
--- NOTE | 2021-04-16 11:44 | NUR ---
RN NOTES DR. HAM IN THE UNIT TO SEE THE PATIENT.
[2021-04-16 12:00] VITALS: BP 104/68
--- NOTE | 2021-04-16 12:23 | NUR ---
PER [facility] COVID NEGATIVE.
[2021-04-16] MEDS: CEFTRIAXONE 1 G in IV D5W 50 ML IV SCH (12:46)
--- NOTE | 2021-04-16 14:48 | NUR ---
RN NOTES TRACH AND ORAL SUCTIONING DONE PRN; REPOSITIONED AND CHANGED IN BED.
[2021-04-16 16:00] VITALS: BP 101/54
--- NOTE | 2021-04-16 19:00 | NUR ---
RN NOTES SAFETY MEASURES MAINTAINED. DUE MEDS GIVEN TODAY. WILL ENDORSE TO TECHNICAL CLERK RN FOR EDY.
--- NOTE | 2021-04-16 19:10 | NUR ---
RN NOTES RECEIVED REPORT FROM MORNING NURSE. PATIENT IN BED RESPONSIVE TO TACTILE STIMULI. WITH TRACH SHILEY #6 INTACT CONNECTED TO T-PIECE @2LPM TOLERATING WELL SATING 95% FIO2. WITH GT PATENT NO GASTRIC RESIDUAL NOTED CONNECTED TO CONTINUOS FEEDING JEVITY 1.2 @75CC/HR TOLERATING WELL. WITH IV ACCES AT L HAND #22 PATENT FLUSHES WELL. WITH ONGOING IVF OF D5NS 100CC/HR TOLERATING WELL. WITH URIBE CATHETER CONNECTED TO URINE BAG DRAINING YELLOWISH URINE OUTPUT. ALL SAFETY MEASURES IN PLACE AT ALL TIEMS. HOB ELEVATED. CALL LIGHT WITHIN REACH BED ON LOWEST POSITION AND LOCKED. WILL CONTINUE TO MONITOR.
[2021-04-16 20:00] VITALS: BP 106/55
[2021-04-16] MEDS: CARBAMAZEPINE 200 MG TABLET PO SCH (21:34)
[2021-04-17] VITALS: BP_SYST 101; BP_SYST 113; BP_DIAS 58; BP_DIAS 65
[2021-04-17] MEDS: JEVITY 1.2 CAL 1,000 ML BOTTLE GT SCH ×2 (00:58→18:28)
[2021-04-17 04:00] VITALS: BP 99/60
[2021-04-17] MEDS: IV D5/ 0.9% NACL 1,000 ML IV PRN ×2 (04:56→17:24)
--- NOTE | 2021-04-17 06:42 | NUR ---
RN NOTES PATIENT REMAINS STABLE NO SIGNIFICANT CHANGES IN HEALTH CONDITION. ALL DUE MEDS GIVEN ORDERED. STILL ON T-PIECE AT 2LPM TOLERATING WELL SATING 98%. GT INTACT. IVF RUNNING AT 100CC/HR. ALL DUE MEDS GIVEN. HOB ELEVATED. CALL LIGHT WITHIN REACH. ALL SAFETY MEASURES IN PLACE AT ALL TIMES. WILL ENDORSE TO MORNING RN FOR EDY
[2021-04-17 06:52] LABS: BASOPHILS % (AUTO) 1.1 % (0.0-2.0); EOSINOPHILS % (AUTO) 6.9 % (0.0-6.0); HEMATOCRIT 25 % (33-45); HEMOGLOBIN 8.2 g/dL (11.5-14.8); LYMPHOCYTES # (AUTO) 1.2 K/uL (0.8-4.8); LYMPHOCYTES % (AUTO) 29.9 % (20.0-44.0); MEAN CORPUSCULAR HGB CONC 33 g/dl (31.0-36.0); MEAN CORPUSCULAR VOLUME 86 fL (82-100); MONOCYTES # (AUTO) 0.3 K/uL (0.1-1.30); MONOCYTES % (AUTO) 8.4 % (2.0-12.0); NEUTROPHILS # (AUTO) 2.1 K/uL (1.8-8.9); NEUTROPHILS % (AUTO) 53.7 % (43.0-81.0); PLATELET COUNT (AUTO) 90 K/uL (150-450); RED BLOOD CELL COUNT(AUTO) 2.88 MIL/uL (4.0-5.2); WHITE BLOOD COUNT (AUTO) 3.8 K/uL (4.3-11.0)
[2021-04-17 07:09] LABS: CALCIUM, SERUM 8.4 mg/dL (8.5-10.1); CREATININE 0.4 mg/dL (0.6-1.3); POTASSIUM 3.5 mmol/L (3.5-5.1)
--- NOTE | 2021-04-17 07:45 | NUR ---
RN OPENING NOTES PATIENT IN BED WITH EYES OPEN, OBTUNDED. ON TRACH SHILEY#6 WITH T-PIECE 2L TOLERATING WELL WITH O2 SAT 97%. NO S/S OF DISTRESS NOTED. NO SOB. IV ACCESS LFA#22G INTACT AND PATENT RUNNING D5NS 100ML/HR. ON GTUBE FEEDING INTACT AND PATENT JEVITY 1.2 AT 75ML/HR;PT TOLERATING WELL. URIBE CATHETER INTACT AND PATENT WITH YELLOW CLEAR URINE. SAFETY MEASURES IN PLACE WITH BED IN LOWEST POSITION AND LOCKED IN PLACE. CALL LIGHT PLACED WITHIN REACH. WILL CONTINUE TO MONITOR.
[2021-04-17 08:00] VITALS: BP 104/62
[2021-04-17] MEDS: PANTOPRAZOLE 40 MG TABLET.DR PO SCH (08:28)
[2021-04-17] MEDS: LEVETIRACETAM SOL (5 ML) 100 MG/ML UDC GT SCH ×3 (09:00→17:12)
[2021-04-17] MEDS: APIXABAN 2.5 MG TABLET GT SCH ×2 (09:03→21:12)
[2021-04-17] MEDS: FAMOTIDINE (20 MG) 20 MG TABLET GT SCH ×2 (09:06→17:12)
[2021-04-17] MEDS: METHOCARBAMOL (500MG) 500 MG TABLET GT SCH ×3 (09:06→17:00)
[2021-04-17] MEDS: HYDROCORTISONE SOD SUCCINATE 100 MG/2 ML VIAL IV SCH (09:07)
[2021-04-17] MEDS: PROSOURCE / PROSTAT (PYXIS) 30 ML UDC GT SCH (09:08)
[2021-04-17] MEDS: CARBAMAZEPINE 200 MG TABLET GT SCH (09:10)
[2021-04-17] MEDS: CHLORHEXIDINE GLUCONATE 15 ML UDC MM SCH ×2 (09:11→17:12)
[2021-04-17 12:00] VITALS: BP 89/51
[2021-04-17] MEDS: CEFTRIAXONE 1 G in IV D5W 50 ML IV SCH (12:25)
[2021-04-17 16:00] VITALS: BP 98/50
--- NOTE | 2021-04-17 18:43 | NUR ---
RN CLOSING NOTES PATIENT IN BED WITH EYES OPEN, OBTUNDED. ON TRACH SHILEY#6 WITH T-PIECE 2L TOLERATING WELL WITH O2 SAT 100%. NO S/S OF DISTRESS NOTED. NO SOB. IV ACCESS LHAND#22G INTACT AND PATENT RUNNING D5NS AT 100ML/HR. G-TUBE FEEDING INTACT AND PATENT WITH JEVITY 1.2 FEEDING AT 75ML/HR. URIBE CATHETER INTACT AND PATENT WITH YELLOW CLEAR URINE. SAFETY MEASURES MAINTAINED. CALL LIGHT PLACED WITHIN REACH. NO SIGNIFICANT CHANGES THROUGHOUT SHIFT. WILL ENDORSE CONTINUITY OF CARE NEXT NURSE.
--- NOTE | 2021-04-17 19:10 | NUR ---
RN NOTES RECEIVED REPORT FROM MORNING NURSE. PATIENT IN BED. WITH TRACH SHILEY #6 INTACT CONNECTED TO T-PIECE AT 2LPM TOLERATING WELL SATING 99%. NO SOB NO DISTRESS. WITH IV ACCESS AT L HAND # 22 PATENT FLUSHES WELL WITH ONGOING IVF D5NS @100 CC/HR. WITH GT CONNECTED TO CONTINUOS FEEDING @ JEVITY 1.2 @75 CC/HR TOLERATING WELL NO GASTRIC RESIDUAL NOTED. WITH URIBE CATHETER CONNECTED TO URINE BAG DRAINING YELLOWISH URINE. ALL SAFETY MEASURES IN PLACE AT ALL TIMES. HOB ELEVATED. CALL LIGHT WITHIN REACH. BED ON LOWEST POSITION AND LOCKED. WILL CLOSELY MONITOR THE PATIENT.
[2021-04-17 20:00] VITALS: BP 106/58
[2021-04-17] MEDS: CARBAMAZEPINE 200 MG TABLET PO SCH (21:07)
[2021-04-18] VITALS: BP 102/59
[2021-04-18 04:00] VITALS: BP 106/65
[2021-04-18] MEDS: IV D5/ 0.9% NACL 1,000 ML IV PRN ×2 (05:36→17:45)
--- NOTE | 2021-04-18 06:49 | NUR ---
RN NOTES PATIENT REMAINS STABLE THE WHOLE SHIFT. NO SIGNIFICANT CHANGES IN HEALTH CONDITION. NO SOB NO DISTRESS NOTED. ALL DUE MEDS GIVEN ORDERED. STILL ON T-PIECE @2LPM. GT INTACT, URIBE PATENT. SUCTIONED SECREATION Q2 AND PRN. ALL SAFETY MEASURES IN PLACE AT ALL TIMES. HOB ELEVATED. CALL LIGHT WITHIN REACH. BED ON LOWEST POSITION AND LOCKED. WILL CLOSELY MONITOR THE PATIENT. ENDORSED TO MORNING NURSE FOR EDY
[2021-04-18 08:00] VITALS: BP 105/59
[2021-04-18] MEDS: CHLORHEXIDINE GLUCONATE 15 ML UDC MM SCH ×2 (08:09→17:31)
[2021-04-18] MEDS: FAMOTIDINE (20 MG) 20 MG TABLET GT SCH ×2 (08:10→17:31)
[2021-04-18] MEDS: CARBAMAZEPINE 200 MG TABLET GT SCH (08:10)
[2021-04-18] MEDS: PANTOPRAZOLE 40 MG TABLET.DR PO SCH (08:10)
[2021-04-18] MEDS: METHOCARBAMOL (500MG) 500 MG TABLET GT SCH ×3 (08:10→17:31)
[2021-04-18] MEDS: LEVETIRACETAM SOL (5 ML) 100 MG/ML UDC GT SCH ×2 (08:14→17:31)
[2021-04-18] MEDS: PROSOURCE / PROSTAT (PYXIS) 30 ML UDC GT SCH (08:14)
[2021-04-18] MEDS: APIXABAN 2.5 MG TABLET GT SCH ×2 (08:17→21:00)
[2021-04-18] MEDS ORDERED: HYDROCORTISONE SOD SUCCINATE 100 MG/2 ML VIAL IV SCH (09:00)
[2021-04-18 12:00] VITALS: BP 101/58
[2021-04-18] MEDS: JEVITY 1.2 CAL 1,000 ML BOTTLE GT SCH (12:13)
[2021-04-18] MEDS: CEFTRIAXONE 1 G in IV D5W 50 ML IV SCH (12:49)
--- NOTE | 2021-04-18 15:47 | NUR ---
RN NOTE URINE SPECIMEN FOR TEST COLLECTED. CALLED LAB FOR SERVICE MANAGER.
[2021-04-18 16:00] VITALS: BP 105/59
[2021-04-18] MEDS ORDERED: CEPH500C2 GT (17:54)
--- NOTE | 2021-04-18 19:10 | NUR ---
RN OPENING NOTES RECEIVED PT IN BED, WITH OPEN EYES, OBTUNDED. RESPIRATORY EVEN AND UNLABORED, NO SOB NOTED, NO S/S OF DISTRESS NOTED . PATIENT PATIENT WITH TRACH SHILEY #6 WITH T-PIECE @ 2LPM SATING AT 98%. PATIENT NOTED WITH LEFT HAND #22, PATENT, INTACT AND FLUSHED WITH NS. GTUBE PATENT INTACT, FLUSHED WITH WATER, PRASHANT RESIDUAL NOTED UPON ASPIRATION. HEAD OF BED KEPT ELEVATED. ALL SAFETY MEASURES PROVIDED. BED IN LOWEST POSITION, LOCKED, BED ALARM ARMED. CALL LIGHT WITHIN REACH. WILL CONTINUE TO MONITOR.
--- NOTE | 2021-04-18 19:31 | NUR ---
RN NOTES PATIENT RESTING IN BED, OBTUNDED. ON TRACH SHILEY#6 WITH T-PIECE 2L TOLERATING WELL WITH O2 SAT 100%. NO S/S OF DISTRESS NOTED. NO SOB. IV ACCESS LHAND#22G INTACT AND PATENT RUNNING D5NS AT 100ML/HR. G-TUBE FEEDING IN PLACE WITH JEVITY 1.2 FEEDING AT 75ML/HR. URIBE CATHETER IN PLACE DRAINING WELL WITH YELLOW CLEAR URINE. SAFETY MEASURES MAINTAINED. NO SIGNIFICANT CHANGES THROUGHOUT SHIFT. WILL ENDORSE CONTINUITY OF CARE NEXT NURSE. PT TO BE D/C TO SNF.
[2021-04-18 20:00] VITALS: BP 112/70
--- NOTE | 2021-04-18 21:45 | NUR ---
RN DISCHARGED NOTES PATIENT PICKED UP BY 2 EMT'S [facility]IA [facility], REPORT GIVEN TO EMT MEMBER, TOOK ALL PATIENT BELONGINGS, LEFT FACILITY IN STABLE CONDITION
[2021-04-18] MEDS: CARBAMAZEPINE 200 MG TABLET PO SCH (22:00)
== END 2021-04-18 23:01 | DRG 815 ==
LOC: ER 15:22 → TRANSITION 19:45 → TELE1 04-11 00:16
PROVIDERS: ADMIT Nurse Practitioner Family; ATTEND Nurse Practitioner Acute Care
DX: T68.XXXA Hypothermia, initial encounter (principal); N17.0 Acute kidney failure with tubular necrosis; R65.21 Severe sepsis with septic shock; J96.20 Acute and chronic respiratory failure, unspecified whether with hypoxia or hypercapnia; J69.0 Pneumonitis due to inhalation of food and vomit; A41.9 Sepsis, unspecified organism; G93.40 Encephalopathy, unspecified; D61.818 Other pancytopenia; R40.3 Persistent vegetative state; D68.59 Other primary thrombophilia; E27.40 Unspecified adrenocortical insufficiency; Z99.11 Dependence on respirator [ventilator] status; Z93.0 Tracheostomy status; N39.0 Urinary tract infection, site not specified; E44.0 Moderate protein-calorie malnutrition; Z20.822 Contact with and (suspected) exposure to COVID-19; Z87.820 Personal history of traumatic brain injury; Z93.1 Gastrostomy status; R13.10 Dysphagia, unspecified; Y95 Nosocomial condition; G93.89 Other specified disorders of brain; E88.09 Other disorders of plasma-protein metabolism, not elsewhere classified; Z79.01 Long term (current) use of anticoagulants; Z79.899 Other long term (current) drug therapy; G40.909 Epilepsy, unspecified, not intractable, without status epilepticus; K76.0 Fatty (change of) liver, not elsewhere classified; E87.0 Hyperosmolality and hypernatremia; B96.4 Proteus (mirabilis) (morganii) as the cause of diseases classified elsewhere; Z74.09 Other reduced mobility
CPT/HCPCS: 31720; 36415; 36600; 70450-TC; 71045-TC; 76700-TC; 80048-TC; 80076-TC; 80156-TC; 80202-TC; 81001; 82533; 82728-TC; 82784; 82803-TC; 82962-TC; 83540-TC; 83605-TC; 83735-TC; 84100-TC; 84155; 84165; 84436-TC; 84443-TC; 84484-TC; 84703-TC; 85025-TC; 85730-TC; 86225; 86235; 86334; 86431-TC; 86706; 86803; 87040-TC; 87081-TC; 87086-TC; 87186-TC; 87340; 94640-TC; 94760-TC; 94762-TC; 94799-TC; 95819-TC; A4217; C9803; G0378; J0692; J0696; J1720; J1953; J2060; J2543; J3370; J3490; J7030; J7042; J7060; J7070; U0003